=== PATIENT | female | born 1955 | race Caucasian/White ===

== ENCOUNTER → 2017-05-11 08:14 | Outpatient (CLI) | payer MEDICARE ==
[~2017-05-11] VITALS: Ht 167.6 cm; Wt 136.8 kg
--- NOTE | ~2017-05-11 | HEMODYNAMI ---
PATIENT:JEAN CARLOS MORAN MEDICAL RECORD: [id number] : 57 LOCATION:[facility] ADMISSION DATE: 05/11/17 Generatedon:05/11/201713:19 Patient name: JEAN CARLOS MORAN Patient #: [id number] : 1955 Date of study: 05/11/2017 Page: Of Hemodynamic Procedure Report Patient Data Patient Demographics Procedure consent was obtained First Name: JEAN CARLOS Gender: Female Last Name: DEAN : 1955 [facility] Initial: NEHA Age: 61 year(s) Patient #: [id number] Race: SSN: [id number] Additional ID: [id number] Contact details Address: [address] [address] State: [place] City: [place] Zip code: [address] Past Medical History Allergies Allergen Reaction Date Comments Reported Stadol 08/05/2016 Other allergy 08/05/2016 VIBRAMYCIN, FLOXIN, DARVOCET, LOROCET, TYLOX, HYDROCODONE, OXYCODONE Other allergy 08/12/2016 Darvocet, Doxycycline, Floxin, Hydrocodone, Lorcet, Oxycodone, Stadol, Tylox, Vibramycin Admission Admission Data Admission Date: 05/11/2017 Admission Time: 8:14 Height (in.): 66 BSA: 2.38 (m2) Height (cm.): 167.64 BMI: 48.58 (kg/m2) Weight (lbs.): 301 Weight (kg.): 136.53 Procedure Procedure Types Cath Procedure Diagnostic Procedure LHC LHC w/Coronaries Miscellaneous Procedures Moderate Sedation up to 15 minutes Procedure Description Procedure Date Procedure Date: 05/11/2017 Procedure Start Time: 13:02 Procedure End Time: 13:17 Procedure Staff Name Function Johny Mclaughlin MD Performing Physician Ammon Tapia RT Scrub Damon Siu RN Nurse Stephen Layne RT Membership Manager Brenna Torres RT Monitor Procedure Data Cath Procedure Fluoroscopy Diagnostic fluoroscopy Total fluoroscopy Time: 2.1 time: 2.1 min min Diagnostic fluoroscopy Total fluoroscopy dose: 754 dose: 754 mGy mGy Contrast Material Contrast Material Type Amount (ml) Isovue 300 58 Entry Location Entry Primary Successful Side Size Upsize Upsize Entry Closure Succes sful Closure Location (Fr) 1 (Fr) 2 (Fr) Remarks Device Remarks Femoral Right 5 Fr Exoseal artery Estimated blood loss: 10 ml Diagnostic catheters Device Type Used For End Catheter Placement Cordis 5Fr Pigtail Procedure Catheter (MP) Cordis 5Fr JL 4.0 Procedure Catheter (MP) Cordis 5Fr 3DRC Catheter Procedure (MP) Procedure Complications No complications Procedure Medications Medication Administration Route Dosage Oxygen NC 2 l/min Heparin Flush Bag added to field 2 bags (1000units/500ml NS) Lidocaine 2% added to field 20 Versed I.V. 1 mg Fentanyl I.V. 50 mcg Versed I.V. 1 mg Fentanyl I.V. 50 mcg Versed I.V. 1 mg Fentanyl I.V. 50 mcg Fentanyl I.V. 50 mcg Hemodynamics Rest BSA: 2.38 (m2) O2 Consumption: Estimated: 236.07 (ml/min) O2 Consumption indexed : Estimated:99.19 (ml/min/m) Heart Rate: 82 (bpm) Snapshots Pre Cath Intra NCS Post Cath Vital Signs Time Heart Resp SPO2 etCO2 [id number] NIBP (mmHg) Rhythm Pain Sedatio n Rate (ipm) (%) (mmHg) (mmHg) Status Level (bpm) 12:51:55 82 19 94 0 0 Measuring NSR 0 (11) 10(A) , No pain 12:52:22 80 17 94 0 0 192/123(183) NSR 0 (11) 10(A) , No pain 12:57:21 83 20 95 0 0 Measuring NSR 0 (11) 10(A) , No pain 12:58:02 81 16 95 0 0 236/123(173) NSR 0 (11) 10(A) , No pain 13:02:43 72 16 98 0 0 224/117(178) NSR 0 (11) 9(A) , No pain 13:07:19 68 16 98 0 0 195/105(165) NSR 0 (11) 9(A) , No pain 13:11:46 73 16 95 0 0 195/98(138) NSR 0 (11) 9(A) , No pain 13:16:12 72 22 96 0 0 191/109(148) NSR 0 (11) 9(A) , No pain Medications Time Medication Route Dose Verified Delivered Reason Notes Effec tiveness by by 12:55:06 Oxygen NC 2 Johny Buffie Per l/min Arnoldo Siu RN physician 12:55:15 Heparin Flush added 2 Johny Johny used for Bag to bags Arnoldo Mclaughlin MD procedure (1000units/500ml field NS) 12:55:26 Lidocaine 2% added 20ml Johny Johny used for to vial Arnoldo Mclaughlin MD procedure field 12:55:42 Versed I.V. 1 mg Johny Buffie for Arnoldo Siu RN sedation 12:55:48 Fentanyl I.V. 50 Johny Buffie for mcg Arnoldo Siu RN sedation 12:57:48 Versed I.V. 1 mg Johny Buffie for Arnoldo Siu RN sedation 12:57:57 Fentanyl I.V. 50 Johny Buffie for mcg Arnoldo Siu RN sedation 13:00:00 Versed I.V. 1 mg Johny Buffie for Arnoldo Siu RN sedation 13:00:10 Fentanyl I.V. 50 Johny Buffie for mcg Arnoldo Siu RN sedation 13:02:05 Fentanyl I.V. 50 Johny Buffie for jaxson Siu RN sedation Procedure Log Time Note 12:30:38 Patient Height : 66 cm 12:30:45 Patient Weight : 301 kg 12:30:48 Diagnostic Cath Status : Elective 12:31:14 Stephen Layne RT(R) (CV) sent for patient. Start room use. 12:31:15 Time tracking: Regular hours 12:31:20 Plan of Care:Hemodynamics will remain stable., Cardiac rhythm will remain stable., Comfort level will be maintained., Respiratory function will remain adequate., Patient/ family verbilizes understanding of procedure., Procedure tolerated without complication., Recovers from procedure without complications.. 12:31:28 Patient received from Pre/Post Procedure Room to CCL 1 Alert and oriented. Tansferred to table in Supine position. 12:31:29 Warm blankets applied, and debra hugger turned on for patient comfort. 12:31:30 Correct patient and procedure confirmed by team. 12:31:32 Signed procedure consent form obtained from patient. 12:31:50 H&P Date Dictated: 04/13/2017 Within 30 days and on chart., H&P Addendum completed by physician on day of procedure. (MUST COMPLETE FOR ALL OUTPATIENTS). 12:31:53 Pre-procedure instructions explained to patient. 12:31:55 Family in waiting room. 12:31:58 Patient NPO since Midnight. 12:32:09 Is the patient allergic to Iodine/contrast media? No. 12:32:17 Is patient on blood thinner?Yes 12:32:20 ACC The patient was administered the following blood thiners within the last 24 hours: ACCPlavix 12:32:24 Patient diabetic? No. 12:32:28 Snore? Yes 12:32:29 Sleep apnea? Yes 12:32:34 Dentures? No ? 12:32:47 IV patent on arrival in left forearm with 0.9% NaCl at KVO. 12:32:54 Lab results completed and on chart. 12:33:01 Right Radial & Right Groin area was prepped with chlora-prep and draped in sterile fashion 12:33:02 Alarms reviewed by R. N. 12:33:03 Sharps counted by scrub and verified by R.N. 12:33:04 Physician paged 12:50:04 ECG and BP/O2 sat monitors applied to patient. 12:50:06 Vital chart was started 12:50:07 Baseline sample Acquired. 12:50:08 Full Disclosure recording started 12:50:13 Physician arrived 12:50:14 --------ALL STOP TIME OUT------ 12:50:15 Final Timeout: patient, procedure, and site verified with staff and physician. All members of the team are in agreement. 12:50:17 Right groin site verified by team. 12:50:21 Physical assessment completed. ASA score P 2 - A patient with mild systemic disease as per Johny Mclaughlin MD. 12:50:25 Sedation plan: IV Moderate Sedation Versed, Fentanyl 12:50:35 Use device set Femoral Dx 12:50:40 Acist Syringe opened to sterile field. 12:50:41 Bag Decanter opened to sterile field. 12:50:41 Medline Cath Pack opened to sterile field. 12:50:41 Terumo 5Fr Udell Sheath opened to sterile field. 12:50:42 St Neeraj 260cm J .035 wire opened to sterile field. 12:50:43 Acist Hand Control opened to sterile field. 12:50:44 Acist Manifold opened to sterile field. 12:50:44 Diagnostic Infinity 5Fr Multipack catheter opened to sterile field. 12:50:46 Tegaderm 4 x 4 opened to sterile field. 12:55:06 Oxygen 2 l/min NC was administered by Damon Siu RN; Per physician; 12:55:15 Heparin Flush Bag (1000units/500ml NS) 2 bags added to field was administered by Johny Mclaughlin MD; used for procedure; 12:55:26 Lidocaine 2% 20ml vial added to field was administered by Johny Mclaughlin MD; used for procedure; 12:55:42 Versed 1 mg I.V. was administered by Damon Siu RN; for sedation; 12:55:48 Fentanyl 50 mcg I.V. was administered by Damon Siu RN; for sedation; 12:57:48 Versed 1 mg I.V. was administered by Damon Siu RN; for sedation; 12:57:57 Fentanyl 50 mcg I.V. was administered by Damon Siu RN; for sedation; 13:00:00 Versed 1 mg I.V. was administered by Damon Siu RN; for sedation; 13:00:10 Fentanyl 50 mcg I.V. was administered by Damon Siu RN; for sedation; 13:01:28 Procedure started. 13:02:05 Fentanyl 50 mcg I.V. was administered by Damon Siu RN; for sedation; 13:02:42 Local anesthetic to right femoral artery with Lidocaine 2% by Johny Mclaughlin MD.INITIAL ACCESS ONLY 13:02:58 A 5 Fr sheath was inserted into the Right Femoral artery 13:07:58 sheath removed damaged 13:08:01 Terumo 5Fr Udell Sheath opened to sterile field. 13:09:42 A Cordis 5Fr Pigtail Catheter (MP) was advanced over the wire and used for Procedure. 13:10:13 LV gram done using SUH 13:10:54 EF : 50 % 13:10:55 Catheter removed. 13:11:11 A Cordis 5Fr JL 4.0 Catheter (MP) was advanced over the wire and used for Procedure. 13:11:16 LCA angiography performed. 13:13:46 A Cordis 5Fr 3DRC Catheter (MP) was advanced over the wire and used for Procedure. 13:13:57 Cordis 5Fr Exoseal opened to sterile field. 13:14:09 Catheter removed. 13:14:31 Sheath removed intact; hemostasis achieved with Exoseal to the Right Femoral artery. 13:15:06 Procedure ended.(Physican Out) 13:15:19 Fluoroscopy time 02.10 minutes. 13:15:27 Fluoroscopy dose: 754 mGy 13:15:27 Flurop Dose total: 754 13:15:31 Contrast amount:Isovue 300 58ml. 13:15:34 Sharps counted by scrub and verified by R.N. 13:15:41 Insertion/operative site no bleeding no hematoma. 13:15:50 Post-op/insertion site Right Femoral artery dressed using a 4 x 4 and Tegaderm. 13:15:57 Post-procedure physical assessment completed. ASA score P 2 - A patient with mild systemic disease as per Johny Mclaughlin MD. 13:16:01 Post procedure rhythm: unchanged. 13:16:04 Estimated blood loss: 10 ml 13:16:08 Post procedure instruction explained to patient.Patient verbalizes understanding. 13:16:18 Procedure and supply charges have been captured, reviewed, submitted and are correct. 13:16:56 Procedure Complication : No complications 13:17:02 Vital chart was stopped 13:17:03 See physician's report for complete and final results. 13:17:05 Report given to Pre/Post Procedure Room. 13:17:08 Patient transfered to Pre/Post Procedure Room with Stretcher. 13:17:14 Procedure ended. 13:17:14 Full Disclosure recording stopped 13:17:17 End room use (Document Last) Device Usage Item Name Manufacture Quantity Catalog Hospital Part Current Minimal Lo t# / Number Charge Number Stock Stock Serial# Code Acist Acist 1 [id number] [id number] 356985 [id number] 20 Syringe [employer] Bag Microtek 1 2002S 604490 34717 232561 5 [employer] Medline Cardinal 1 [id number] 416578 85391 353374 5 800razors Terumo 5Fr Terumo 2 [id number] 536650 712086 880627 [address] Neeraj 1 486813 723729 144804 024786 30 260cm J .035 wire Acist Hand Acist 1 71946 887233 546227 499758 5 Control [employer] Acist Acist 1 90976 631923 993327 826087 5 Manifold [employer] Diagnostic Cardinal 1 [id number] 814785 15933 456920 30 [employer] 5Fr Multipack catheter Tegaderm 4 3M 1 1626W 575303 765213 937665 5 x 4 Cordis 5Fr Cardinal 1 468149 5 Pigtail Health Catheter (MP) Cordis 5Fr Cardinal 1 447394 5 JL 4.0 Health Catheter (MP) Cordis 5Fr Cardinal 1 552220 5 3DRC Health Catheter (MP) Cordis 5Fr Cardinal 1 EX500 942270 631376 060015 10 [facility] [employer] Signature Audit [place] Stage Time Signature Unsigned Intra-Procedure 05/11/2017 Brenna Torres 1:19:51 PM RT(R) Signatures Monitor : Brenna Torres Signature : RT Date : Time : [id number] [place] [address]
--- NOTE | ~2017-05-11 | OP ---
PATIENT NAME: JEAN CARLOS MORAN MEDICAL RECORD: [id number] :57 LOCATION:D.CAT ADMISSION DATE: SURGEON: TIANNA MAE MD DATE OF OPERATION: 05/11/2017 PROCEDURES: 1. Left heart catheterization. 2. Selective coronary angiography. 3. Left ventriculogram. INDICATION: Chest pain compatible with angina. PROCEDURE IN DETAIL: After informed consent was obtained and after a detailed explanation of the risks, benefits as well as alternative therapies, the patient elected to proceed with angiogram and heart catheterization. The right femoral area is prepped and draped in normal sterile fashion. The right femoral artery was cannulated via modified Seldinger technique with placement of 5-Surinamese sheath. All catheters exchanged through this sheath. FINDINGS: Left ventriculogram was performed in standard 30-degree SUH view, reveals preserved cardiac wall motion, ejection fraction of 55%. SELECTIVE CORONARY ANGIOGRAPHY: 1. Left main showed no significant angiographic disease. 2. Left anterior descending has previously placed stent that is widely patent with no significant restenosis. No disease elsewise throughout the LAD or its branches. 3. Left circumflex has mild irregularities, but no flow-limiting stenosis. Previously placed stent is widely patent. 4. Right coronary has moderate irregularities, but no flow-limiting stenosis. Previously placed stent is widely patent. OVERALL IMPRESSION: Wide patency of all of her previously placed stent. No disease elsewise. Continue medical management of the coronary artery disease and cardiac risk factors. TRANSINT:[id number] Voice Confirmation ID: [id number] DOCUMENT ID: [id number] TIANNA MAE MD CC: [id number] DICTATION DATE: 05/11/17 1638 LIGHT OUT EXAMINER: 05/12/17 0010 DEP CLI 05/11/17 [facility] [address] [place] [address]
[~2017-05-11 08:14] MED LIST: BAYER CHEWABLE81 MG PO; CARDURA2 MG PO; CATAPRES0.2 MG PO; HUMALOG MI100 UNITS/ SC; ISOSORBIDE MONO60 M1 PO; K-DUR20 MEQ PO; LANTUS INSULIN10 ML SC; LASIX80 MG PO; LEXAPRO20 MG PO; LIPITOR20 MG PO; LISINOPRIL10 MG PO; LOVENOX40 MG/0.4 SC; LYRICA50 MG PO; METOLAZONE5 MG PO; METOPROLOL TART50 MG PO; MUCINEX600 MG PO; NORMODYNE / TR300 MG PO; NORVASC10 MG PO; NOVOLOG100 U/M1 SC; PLAVIX75 MG PO; TESSALON PERLE100 MG PO; ZESTRIL40 MG PO; ZOCOR20 MG PO
[2017-05-11 08:46] VITALS: BP 197/87; Ht 167.6 cm; Wt 136.8 kg
[2017-05-11 09:03] LABS: BASOPHILS 0.4 % (0-2); EOSINOPHILS 2.2 % (0-7); HEMATOCRIT 37.6 % (36.0-48.0); HEMOGLOBIN 12.3 g/dL (12-16); IMMATURE GRANULOCYTES 0.6 % (0-5); LYMPHOCYTES 9.4 % (15-50); MCH 27.7 pg (26.0-34.0); MCHC 32.7 g/dL (31.0-37.0); MCV 84.7 fL (80.0-100.0); MEAN PLATELET VOLUME 10.4 fL (7.4-10.4); MONOCYTES 5.2 % (2-11); NEUTROPHILS 82.2 % (40-80); PLATELET COUNT 227 10x3/uL (130-400); RBC 4.44 10x6/uL (4.00-5.40); RDW 14.1 % (11.5-14.5); WBC 6.9 10x3/uL (4.8-10.8)
[2017-05-11 09:08] LABS: ANION GAP 9.3 mmol/L (8-16); CARBON DIOXIDE 30.9 mmol/L (21.0-32.0); CREATININE - SERUM 1.1 mg/dL (0.6-1.3); POTASSIUM - SERUM 4.2 mmol/L (3.5-5.1)
--- NOTE | 2017-05-11 13:45 | NUR ---
RESTING WITH FAMILY AT SIDE, RIGHT GROIN CDI, NO HEMATOMA OR BLEEDING AT SITE. DENIES NEEDS
--- NOTE | 2017-05-11 14:15 | NUR ---
RESTING WITH FAMILY AT SIDE, RIGHT GROIN CDI, NO HEMATOMA OR BLEEDING AT SITE
--- NOTE | 2017-05-11 15:30 | NUR ---
IV D'C WITH CATH TIP INTACT, WRITTEN AND VERBAL D'C INSTRUCTIONS GIVEN TO PT AND FAMILY. UP TO RESTROOM- VOID, DENIES FURTHUR NEEDS
== END | disposition home or self-care (01) ==
LOC: D.CATH 08:14
PROVIDERS: Internal Medicine Interventional Cardiology
DX: R07.89 Other chest pain (principal); I25.10 Atherosclerotic heart disease of native coronary artery without angina pectoris; Z95.5 Presence of coronary angioplasty implant and graft; Z01.812 Encounter for preprocedural laboratory examination

== ENCOUNTER 2017-12-02 13:20 | Inpatient (IN) | payer MEDICARE ==
[~2017-12-02] VITALS: Ht 167.6 cm; Wt 123.2 kg
--- NOTE | ~2017-12-02 | OP ---
PATIENT NAME: JEAN CARLOS MORAN MEDICAL RECORD: [id number] :57 LOCATION:D.M2 D.2122 ADMISSION DATE:12/03/17 SURGEON: FIONA HERNANDEZ MD DATE OF OPERATION: 12/03/2017 PROCEDURE: Left heart catheterization, selective coronary angiography, right femoral artery approach. CATHETERS: A 5-[place] sheath, 5/4 left and right Octavio, 5/4 pig. The procedure was well tolerated. The patient returned to the modi, sheath removed. ExoSeal device placed. FINDINGS: Left ventriculography in the 30-degree SUH view. Normal wall motion, normal systolic function. CORONARY ANATOMY. LEFT MAIN: Left main is free of disease. LAD: An area of previous stenting is widely patent, some diffuse wall disease distally. CIRCUMFLEX: Circumflex is free of disease. RIGHT CORONARY ARTERY: Area of previous stenting is widely patent, some diffuse disease distally. IMPRESSION: Typical diabetic disease, widely patent stents. No major epicardial disease. TRANSINT:[id number] Voice Confirmation ID: [id number] DOCUMENT ID: [id number] FIONA HERNANDEZ MD at 0919 CC: [id number] DICTATION DATE: 12/03/17 1219 IOS DEVELOPER: 12/03/17 1259 DIS IN 12/05/17 [address] [place] [address]
--- NOTE | ~2017-12-02 | HEMODYNAMI ---
PATIENT:JEAN CARLOS MORAN MEDICAL RECORD: [id number] : 57 [facility] [id number] ADMISSION DATE: 12/02/17 Generatedon:12/03/201712:18 Patient name: JEAN CARLOS MORAN Patient #: [id number] : 1955 Date of study: 12/03/2017 Page: Of Hemodynamic Procedure Report Patient Data Patient Demographics Procedure consent was obtained First Name: JEAN CARLOS Gender: Female Last Name: DEAN : 1955 [facility] Initial: NEHA Age: 62 year(s) Patient #: [id number] Race: SSN: [id number] Additional ID: [id number] Contact details Address: [place] [address] State: [place] City: [place] Zip code: [address] Past Medical History Allergies Allergen Reaction Date Comments Reported Stadol 08/05/2016 Other allergy 08/05/2016 VIBRAMYCIN, FLOXIN, DARVOCET, LOROCET, TYLOX, HYDROCODONE, OXYCODONE Other allergy 08/12/2016 Darvocet, Doxycycline, Floxin, Hydrocodone, Lorcet, Oxycodone, Stadol, Tylox, Vibramycin Admission Admission Data Admission Date: 12/02/2017 Admission Time: 14:59 Room #: D.2122 Procedure Procedure Types Cath Procedure Diagnostic Procedure [facility] w/Coronaries Procedure Description Procedure Date Procedure Date: 12/03/2017 Procedure Start Time: 12:04 Procedure End Time: 12:17 Procedure Staff Name Function Roberto Cates MD Performing Physician Pallavi Saha RT Monitor Aj Awan RN Nurse Hammad Kaplan RT Scrub Procedure Data Cath Procedure Fluoroscopy Diagnostic fluoroscopy Total fluoroscopy Time: 0.9 time: 0.9 min min Diagnostic fluoroscopy Total fluoroscopy dose: 600 dose: 600 mGy mGy Contrast Material Contrast Material Type Amount (ml) Isovue 300 62 Entry Location Entry Primary Successful Side Size Upsize Upsize Entry Closure Succes sful Closure Location (Fr) 1 (Fr) 2 (Fr) Remarks Device Remarks Femoral Right 5 Fr Exoseal artery Estimated blood loss: 5 ml Diagnostic catheters Device Type Used For End Catheter Placement MULTIPACK JL 4.0 5Fr Left Coronary catheter Angiography MULTIPACK 3DRC 5Fr Right Coronary catheter Angiography MULTIPACK Pigtail 5 Fr LV Angiography catheter Procedure Complications No complications Procedure Medications Medication Administration Route Dosage Oxygen NC 2 l/min Heparin Flush Bag added to field 2 bags (1000units/500ml NS) 0.9% NaCl I.V. 100 ml/hr Zofran I.V. 4 mg Fentanyl I.V. 50 mcg Versed I.V. 1 mg Fentanyl I.V. 50 mcg Versed I.V. 1 mg Hemodynamics Rest Heart Rate: 66 (bpm) Pressure Samples Time Site Value (mmHg) Purpose Heart Use Rate(bpm) 12:12 LV 130/17,22 EDP 71 12:12 AO 138/60(87) Pullback 71 Gradients Valve Time Site Site 2 Mean SEP/DFP Peak To Heart Use 1 (mmHg) (sec/min) Peak Rate (mmHg) (bpm) Aortic 12:12 LV AO 71 138/60(87) Snapshots Pre Cath Intra NCS Post Cath Vital Signs Time Heart Resp SPO2 etCO2 NIBP (mmHg) Rhythm Pain Sedation Rate (ipm) (%) (mmHg) Status Level (bpm) 11:52:30 66 16 99 0 179/88(136) NSR 0 (11) 10(A) , No pain 11:57:20 62 17 95 0 160/81(120) NSR 0 (11) 10(A) , No pain 12:02:09 62 16 92 0 143/73(103) NSR 0 (11) 10(A) , No pain 12:06:54 68 16 90 0 145/75(112) NSR 0 (11) 10(A) , No pain 12:11:53 68 16 92 0 Measuring NSR 0 (11) 10(A) , No pain 12:12:19 70 16 92 0 137/68(122) NSR 0 (11) 10(A) , No pain 12:17:02 71 18 93 0 144/81(114) NSR 0 (11) 10(A) , No pain Medications Time Medication Route Dose Verified Delivered Reason Notes Effec tiveness by by 12:00:14 Oxygen NC 2 Roberto Guyy Per l/min St Albin Awan RN physician 12:00:23 Heparin Flush added 2 Roberto Aj used for Bag to bags St Albin Awan RN procedure (1000units/500ml field NS) 12:00:32 0.9% NaCl I.V. 100 Roberto Guyy Per ml/hr [facility] Albin Awan RN physician 12:00:54 Zofran I.V. 4 mg Roberto Rocha for [facility] Albin Awan RN nausea MD 12:01:02 Fentanyl I.V. 50 Roberto Aj for [facility] Albin Awan RN sedation MD 12:01:08 Versed I.V. 1 mg Roberto Guyy for [facility] Albin Awan RN sedation 12:08:13 Fentanyl I.V. 50 Roberto Aj for [facility] Albin Awan RN sedation 12:08:18 Versed I.V. 1 mg Roberto Guyy for [facility] Albin Awan RN sedation MD Procedure Log Time Note 11:24:04 Aj Awan RN sent for patient. Start room use. 11:24:04 Time tracking: Regular hours 11:24:08 Plan of Care:Hemodynamics will remain stable., Cardiac rhythm will remain stable., Comfort level will be maintained., Respiratory function will remain adequate., Patient/ family verbilizes understanding of procedure., Procedure tolerated without complication., Recovers from procedure without complications.. 11:44:01 Patient received from PCU to [facility] 1 Alert and oriented. Tansferred to table in Supine position. 11:44:03 Warm blankets applied, and debra hugger turned on for patient comfort. 11:44:03 Correct patient and procedure confirmed by team. 11:44:05 Signed procedure consent form obtained from patient. 11:44:05 ECG and BP/O2 sat monitors applied to patient. 11:44:06 Full Disclosure recording started 11:51:25 Vital chart was started 11:53:51 Baseline sample Acquired. 11:53:55 Rhythm: sinus rhythm 11:54:37 H&P Date Dictated: 12/03/2017 Within 30 days and on chart., H&P Addendum completed by physician on day of procedure. (MUST COMPLETE FOR ALL OUTPATIENTS). 11:54:38 Pre-procedure instructions explained to patient. 11:54:38 Pre-op teaching completed and patient verbalized understanding. 11:54:40 Family in waiting room. 11:54:41 Patient NPO since Midnight. 11:55:29 Is the patient allergic to Iodine/contrast media? No. 11:55:32 Is patient on blood thinner?No 11:55:45 Patient diabetic? Yes. 11:55:46 If diabetic: On Metformin? No 11:55:52 Previous problem with sedation/anesthesia? No ? 11:55:54 Snore? Yes 11:55:57 Sleep apnea? Yes 11:55:58 Deviated septum? No 11:55:59 Opens mouth fully? Yes 11:56:00 Sticks out tongue? Yes 11:56:04 Airway obstruction? No ? 11:56:07 Dentures? No ? 11:56:11 Pre procedure: right dorsailis pedis pulse 2+ Normal; easily identifiable; not easily obliterated 11:56:18 Pre procedure: right radial pulse 1+ Palpable, but thready & weak; easily obliterated 11:56:21 Patient pain scale 0/10 ?. 11:56:27 IV patent on arrival in right hand with 0.9% NaCl at [facility] 11:56:29 Lab results completed and on chart. 11:56:33 Right groin area was prepped with chlora-prep and draped in sterile fashion 11:56:34 Alarms reviewed by R. N. 11:56:35 Sharps counted by scrub and verified by R.N. 11:56:39 Use device set Femoral Dx 11:56:40 ACIST Syringe (36884) opened to sterile field. 11:56:41 Bag Decanter (2002) opened to sterile field. 11:56:41 Medline Cath Pack ([id number]) opened to sterile field. 11:56:42 SHEATH 5FR [place] (GCR728) opened to sterile field. 11:56:42 DIAGNOSTIC WIRE .035 260cm J wire (013433) opened to sterile field. 11:56:43 ACIST Hand Control (68834) opened to sterile field. 11:56:44 ACIST Manifold (23878) opened to sterile field. 11:56:44 DIAGNOSTIC Multipack 5Fr catheter set ([id number]) opened to sterile field. 11:56:45 Tegaderm 4 x 4 (1626W) opened to sterile field. 11:56:46 PERCUTANEOUS ENTRY 19GA needle opened to sterile field. 12:00:14 Oxygen 2 l/min NC was administered by Aj Awan RN; Per physician; 12:00:23 Heparin Flush Bag (1000units/500ml NS) 2 bags added to field was administered by Aj Awan RN; used for procedure; 12:00:32 0.9% NaCl 100 ml/hr I.V. was administered by Aj Awan RN; Per physician; 12:00:32 Final Timeout: patient, procedure, and site verified with staff and physician. All members of the team are in agreement. 12:00:34 Right groin site verified by team. 12:00:36 Physical assessment completed. ASA score P 2 - A patient with mild systemic disease as per Roberto Cates MD. 12:00:40 Sedation plan: IV Moderate Sedation Medication:Versed, Fentanyl 12:00:54 Zofran 4 mg I.V. was administered by Aj Awan RN; for nausea; 12:01:02 Fentanyl 50 mcg I.V. was administered by Aj Awan RN; for sedation; 12:01:08 Versed 1 mg I.V. was administered by Aj Awan RN; for sedation; 12:04:21 Procedure started. 12:04:33 Local anesthetic to right femoral artery with Lidocaine 2% by Roberto Cates MD.INITIAL ACCESS ONLY 12:04:56 Zero performed for pressure channel P1 12:05:14 Zero performed for pressure channel P1 12:08:09 A 5 Fr sheath was inserted into the Right Femoral artery 12:08:13 Fentanyl 50 mcg I.V. was administered by Aj Awan RN; for sedation; 12:08:18 Versed 1 mg I.V. was administered by Aj Awan RN; for sedation; 12:08:33 A MULTIPACK JL 4.0 5Fr catheter was advanced over the wire and used for Left Coronary Angiography. 12:10:09 Catheter removed. 12:10:56 A MULTIPACK 3DRC 5Fr catheter was advanced over the wire and used for Right Coronary Angiography. 12:11:15 Catheter removed. 12:11:30 A MULTIPACK Pigtail 5 Fr catheter was advanced over the wire and used for LV Angiography. 12:12:35 LV gram done using SUH 12:12:36 LV hemodynamics recorded. 12:12:40 Injector settings: Ml/sec: 10, Volume: 20, 12:12:45 EF : 55 % 12:12:52 Catheter removed. 12:13:04 Sheath removed intact; hemostasis achieved with Exoseal to the Right Femoral artery. 12:13:06 Procedure ended.(Physican Out) 12:13:14 Fluoroscopy time 00.90 minutes. 12:13:18 Flurop Dose total: 600 12:13:18 Fluoroscopy dose: 600 mGy 12:13:20 Contrast amount:Isovue 300 62ml. 12:13:22 Sharps counted by scrub and verified by R.N. 12:13:23 Insertion/operative site no bleeding no hematoma. 12:13:27 Post-op/insertion site Right Femoral artery dressed using a 4 x 4 and Tegaderm. 12:13:30 Post right femoral artery:stable, clean and dry 12:13:31 Post Procedure Pulses reassessed and unchanged 12:13:36 Post-procedure physical assessment completed. ASA score P 2 - A patient with mild systemic disease as per Roberto Cates MD. 12:13:39 Post procedure rhythm: unchanged. 12:14:14 Estimated blood loss: 5 ml 12:14:16 Post procedure instruction explained to patient.Patient verbalizes understanding. 12:14:16 Patient needs reinforcement of post procedure teaching. 12:14:37 Procedure Complication : No complications 12:14:39 See physician's report for complete and final results. 12:14:48 EXOSEAL 5Fr (EX500) opened to sterile field. 12:15:10 Procedure and supply charges have been captured, reviewed, submitted and are correct. 12:17:12 Vital chart was stopped 12:17:14 Report given to PCU. 12:17:17 Patient transfered to PCU with Bed. 12:17:26 Procedure ended. 12:17:26 Full Disclosure recording stopped 12:17:29 End room use (Document Last) Device Usage Item Name Manufacture Quantity Catalog Hospital Part Current Minimal Lot# / Number Charge Number Stock Stock Serial# Code ACIST Acist 1 13420 [id number] 522574 139985 20 Syringe Activation Life (96147) [employer] Bag Decanter Microtek 1 640362 33985 139344 5 () [employer] Inc. Medline Cath Cardinal 1 [id number] 009183 98737 805673 5 VMware ([id number]) SHEATH 5FR Terumo 1 [id number] 891232 240528 458922 40 [place] ([id number]) DIAGNOSTIC St Neeraj 1 537379 479384 589304 829801 30 WIRE .035 260cm J wire (295392) ACIST Hand Acist 1 07631 396414 832739 341106 5 Control Medical (43958) Systems Inc ACIST Acist 1 06572 869126 500064 806119 5 Manifold Medical (39069) Systems Inc DIAGNOSTIC Cardinal 1 [id number] 477104 33372 175153 30 Multipack Health 5Fr catheter set ([id number]) Tegaderm 4 x 3M 1 1626W 084450 566272 899444 5 4 (1626W) PERCUTANEOUS Cook Medical 1 Q58441 824859 004637 5 ENTRY 19GA needle MULTIPACK JL Cardinal 1 130888 5 4.0 5Fr Health catheter MULTIPACK Cardinal 1 249349 5 3DRC 5Fr Health catheter MULTIPACK Cardinal 1 894358 5 Pigtail 5 Fr Health catheter EXOSEAL 5Fr Cardinal 1 EX500 547085 265993 994327 10 (EX500) Health Signature Audit [place] Stage Time Signature Unsigned Intra-Procedure 12/03/2017 Pallavi 12:18:06 PM Counts RT(R) Signatures Monitor : Pallavi Signature : Counts RT Date : Time : [id number] [place] [address]
[2017-12-02 14:35] LABS: BASOPHILS 0.3 % (0-2); EOSINOPHILS 2.5 % (0-7); HEMATOCRIT 37.2 % (36.0-48.0); HEMOGLOBIN 12.4 g/dL (12-16); IMMATURE GRANULOCYTES 0.5 % (0-5); LYMPHOCYTES 19.2 % (15-50); MCH 28.2 pg (26.0-34.0); MCHC 33.3 g/dL (31.0-37.0); MCV 84.5 fL (80.0-100.0); MEAN PLATELET VOLUME 10.2 fL (7.4-10.4); MONOCYTES 6.4 % (2-11); NEUTROPHILS 71.1 % (40-80); PLATELET COUNT 202 10x3/uL (130-400); RDW 13.5 % (11.5-14.5); WBC 6.1 10x3/uL (4.8-10.8)
[2017-12-02 14:54] LABS: ALBUMIN 3.4 g/dL (3.4-5.0); ALKALINE PHOSPHATASE 76 U/L (46-116); ALT (SGPT) 28 U/L (10-68); BILIRUBIN - TOTAL 0.61 mg/dL (0.2-1.3); CALC OSMOLALITY 283 mosm/kg (275-300); CALCIUM 9.1 mg/dL (8.5-10.1); CARBON DIOXIDE 30.3 mmol/L (21.0-32.0); CHLORIDE - SERUM 100 mmol/L (98-107); CREATININE - SERUM 1.3 mg/dL (0.6-1.3); GLUCOSE 179 mg/dL (74-106); POTASSIUM - SERUM 3.6 mmol/L (3.5-5.1); PROTEIN - SERUM 6.3 g/dL (6.4-8.2); SODIUM 138 mmol/L (136-145); UREA NITROGEN 24 mg/dL (7-18); eGFR NON AFRICAN AMERICAN 44 mL/min (90-120)
[2017-12-02 15:04] LABS: MAGNESIUM - SERUM 1.4 mg/dL (1.8-2.4)
[2017-12-02 15:05] LABS: CKMB 0.5 U/L (0.0-3.6); CREATINE KINASE 50 UL (21-215); PRO BNP 532 pg/mL (0-125); TROPONIN-I 0.008 ng/mL (0.000-0.060)
[2017-12-02 15:06] LABS: CHOL - HDL RATIO 3.9 ratio (2.3-4.1); CHOLESTEROL, TOTAL 198 mg/dL (0-200); HDL CHOLESTEROL 51 mg/dL (32-96); LDL CHOLESTEROL 117 mg/dL (0-100); LDL-HDL RATIO 2.3 ratio (1.5-3.5); TRIGLYCERIDE 151 mg/dL (30-200)
[2017-12-02] MEDS ORDERED: LYRICA50 MG PO (16:48)
[2017-12-02 16:58] VITALS: BP 160/71; BMI 46.7
[2017-12-02 20:00] VITALS: BP 159/63
[2017-12-02 20:08] LABS: CREATINE KINASE 65 UL (21-215)
[2017-12-02 20:15] LABS: TROPONIN-I < 0.017 ng/mL (0.000-0.060)
[2017-12-03] VITALS: BP 121/98
[2017-12-03 04:00] VITALS: BP 153/62
[2017-12-03 04:40] LABS: CKMB 0.3 U/L (0.0-3.6); CREATINE KINASE 45 UL (21-215); TROPONIN-I < 0.017 ng/mL (0.000-0.060)
[2017-12-03 08:46] LABS: ANION GAP 14.7 mmol/L (8-16); CALCIUM 8.9 mg/dL (8.5-10.1); POTASSIUM - SERUM 3.7 mmol/L (3.5-5.1)
[2017-12-03 08:48] LABS: CREATININE - SERUM 1.7 mg/dL (0.6-1.3)
[2017-12-03 08:50] LABS: BASOPHILS 0.5 % (0-2); EOSINOPHILS 2.3 % (0-7); HEMATOCRIT 37.9 % (36.0-48.0); HEMOGLOBIN 12.3 g/dL (12-16); IMMATURE GRANULOCYTES 0.4 % (0-5); LYMPHOCYTES 23.9 % (15-50); MCH 28.7 pg (26.0-34.0); MCHC 32.5 g/dL (31.0-37.0); MEAN PLATELET VOLUME 10.7 fL (7.4-10.4); MONOCYTES 7.6 % (2-11); NEUTROPHILS 65.3 % (40-80); PLATELET COUNT 206 10x3/uL (130-400); RBC 4.29 10x6/uL (4.00-5.40); RDW 13.7 % (11.5-14.5); WBC 5.7 10x3/uL (4.8-10.8)
[2017-12-03 08:53] VITALS: BP 151/70
[2017-12-03 08:53] LABS: MCV 88.3 fL (80.0-100.0)
[2017-12-03 13:36] VITALS: BP 135/66
[2017-12-03 13:44] VITALS: Ht 167.6 cm; Wt 123.2 kg
[2017-12-03 16:01] VITALS: BP 145/62
[2017-12-03 19:00] VITALS: BP 131/69
[2017-12-04] VITALS: BP 156/65
[2017-12-04 04:00] VITALS: BP 137/56
[2017-12-04 04:39] LABS: BASOPHILS 0.3 % (0-2); EOSINOPHILS 3.1 % (0-7); HEMATOCRIT 34.9 % (36.0-48.0); IMMATURE GRANULOCYTES 0.1 % (0-5); MCH 27.9 pg (26.0-34.0); MCHC 31.5 g/dL (31.0-37.0); MCV 88.6 fL (80.0-100.0); MEAN PLATELET VOLUME 9.6 fL (7.4-10.4); MONOCYTES 6.7 % (2-11); NEUTROPHILS 70.8 % (40-80); PLATELET COUNT 191 10x3/uL (130-400); RBC 3.94 10x6/uL (4.00-5.40); RDW 13.5 % (11.5-14.5); WBC 6.8 10x3/uL (4.8-10.8)
[2017-12-04 04:49] LABS: ANION GAP 10.8 mmol/L (8-16); CALCIUM 8.8 mg/dL (8.5-10.1); CARBON DIOXIDE 31.8 mmol/L (21.0-32.0); CREATININE - SERUM 1.6 mg/dL (0.6-1.3); POTASSIUM - SERUM 3.6 mmol/L (3.5-5.1)
[2017-12-04 07:46] VITALS: BP 138/61
[2017-12-04 11:39] VITALS: BP 146/66
[2017-12-04 15:34] VITALS: BP 185/77
[2017-12-04 21:40] VITALS: BP 195/83
[2017-12-05 00:47] VITALS: BP 151/63
[2017-12-05 06:44] VITALS: BP 145/71
[2017-12-05 07:18] LABS: BASOPHILS 0.3 % (0-2); EOSINOPHILS 3.2 % (0-7); HEMATOCRIT 36.1 % (36.0-48.0); HEMOGLOBIN 11.5 g/dL (12-16); IMMATURE GRANULOCYTES 0.3 % (0-5); LYMPHOCYTES 19.5 % (15-50); MCHC 31.9 g/dL (31.0-37.0); MONOCYTES 7.4 % (2-11); NEUTROPHILS 69.3 % (40-80); PLATELET COUNT 175 10x3/uL (130-400); RDW 13.4 % (11.5-14.5); WBC 5.9 10x3/uL (4.8-10.8)
[2017-12-05 07:31] LABS: ANION GAP 10.9 mmol/L (8-16); CALCIUM 8.2 mg/dL (8.5-10.1); CARBON DIOXIDE 31.8 mmol/L (21.0-32.0); CREATININE - SERUM 1.5 mg/dL (0.6-1.3); MAGNESIUM - SERUM 1.9 mg/dL (1.8-2.4); POTASSIUM - SERUM 3.7 mmol/L (3.5-5.1)
[2017-12-05 08:11] VITALS: BP 165/81
[2017-12-05 11:26] VITALS: BP 168/76
== END 2017-12-05 14:57 | disposition home or self-care (01) | DRG 287 ==
LOC: D.ER 13:20 → OBSVTIME 14:59 → D.EDHOLD 14:59 → D.M2 14:59
PROVIDERS: Emergency Medicine; Internal Medicine Interventional Cardiology; Internal Medicine Nephrology
PROC: B2151ZZ Fluoroscopy of Left Heart using Low Osmolar Contrast (ICD-10-PCS; 2017-12-03)
PROC: 4A023N7 Measurement of Cardiac Sampling and Pressure, Left Heart, Percutaneous Approach (ICD-10-PCS; 2017-12-03)
PROC: B2111ZZ Fluoroscopy of Multiple Coronary Arteries using Low Osmolar Contrast (ICD-10-PCS; principal; 2017-12-03 10:00)
DX: I25.119 Atherosclerotic heart disease of native coronary artery with unspecified angina pectoris (principal); N17.9 Acute kidney failure, unspecified; E83.42 Hypomagnesemia; I11.0 Hypertensive heart disease with heart failure; I50.9 Heart failure, unspecified; K21.9 Gastro-esophageal reflux disease without esophagitis; G47.33 Obstructive sleep apnea (adult) (pediatric); E78.5 Hyperlipidemia, unspecified; F41.9 Anxiety disorder, unspecified; E11.9 Type 2 diabetes mellitus without complications; Z86.73 Personal history of transient ischemic attack (TIA), and cerebral infarction without residual deficits; Z95.5 Presence of coronary angioplasty implant and graft